=== PATIENT | female | born 1960 | race Caucasian/White ===

== ENCOUNTER 2017-03-20 09:10 | Emergency (ER) | payer BC ==
[~2017-03-20] VITALS: Ht 167.6 cm; Wt 76.0 kg
[2017-03-20 09:11] VITALS: BP 143/95; PULSE 65; RESP 16; TEMP 98.2; O2SAT 96
[2017-03-20 09:57] LABS: AUTOMATED NEUTROPHIL # 4.4 TH/MM3 (1.8-7.7); BASOPHIL % 0.6 % (0.0-2.0); EOSINOPHIL # 0.1 TH/MM3 (0-0.4); EOSINOPHIL % 2.2 % (0.0-4.0); HEMATOCRIT 37.5 % (35.0-46.0); HEMO FLAGS DIFF FINAL; LYMPH % 26.3 % (9.0-44.0); LYMPHOCYTE # 1.8 TH/MM3 (1.0-4.8); MEAN CELL VOLUME 88.5 FL (80.0-100.0); MEAN CORPUSCULAR HEMOGLOBIN 31.7 PG (27.0-34.0); MEAN CORPUSCULAR HGB CONC 35.8 % (32.0-36.0); MONO % 6.2 % (0.0-8.0); NEUT % 64.7 % (16.0-70.0); PLATELET COUNT 199 TH/MM3 (150-450); RED BLOOD COUNT 4.23 MIL/MM3 (4.00-5.30); RED CELL DISTRIBUTION WIDTH 13.2 % (11.6-17.2); WHITE BLOOD COUNT 6.9 TH/MM3 (4.0-11.0)
[2017-03-20 10:03] LABS: PROTHROMBIN TIME - PATIENT 10.7 SEC (9.8-11.6)
--- NOTE | 2017-03-20 10:09 | RADRPT ---
EXAM DATE/TIME: 03/20/2017 09:59 [place] COMPARISON: No previous studies available for comparison. INDICATIONS : Mid sternal chest pains with pressure, radiating between shoulder blades. MEDICAL HISTORY : None. SURGICAL HISTORY : None. ENCOUNTER: Initial ACUITY: 3 days PAIN SCORE: 8/10 LOCATION: Bilateral chest FINDINGS: PA and lateral views of the chest demonstrate the lungs to be symmetrically aerated without evidence of mass, infiltrate or effusion. The cardiomediastinal contours are unremarkable. Osseous structure s are intact. CONCLUSION: Normal examination. Conrad Peres Jr., MD on March 20, 2017 at 10:07 Board Certified Radiologist. This report was verified electronically.
--- NOTE | 2017-03-20 10:13 | PD ---
HPI Chief Complaint: Chest Pain Time Seen by Provider: 09:56 Travel History International Travel<30 days: No Contact w/Intl Traveler<30days: No Traveled to known affect area: No History of Present Illness HPI The patient is a 56-year-old female who presents emergency department for chest discomfort. The patient has a history of intermittent anterior chest discomfort, substernal, described as tightness, they can last from several seconds to 5 minutes. The patient had the discomfort this morning after eating breakfast and the mother driving to work. She denied any shortness of breath, nausea, vomiting, or diaphoresis. The patient does have a history of hyperlipidemia but denies any history of hypertension, tobacco use, diabetes, coronary artery disease, or early family history for heart disease. 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 Raygoza. The patient states the stress test was normal. She denies any exertional symptoms. She denies any known history of GERD, reflux, hiatal hernia, esophagitis, or esophageal spasm. Symptoms are mild to moderate, self alleviating, and there are no exacerbating factors. PFSH Past Medical History Narrative Medical Migraine, hypothyroidism, hyperlipidemia Past Surgical History Narrative Surgical Noncontributory Social History Tobacco Use: No Allergies-Medications (Allergen,Severity, Reaction): Coded Allergies: No Known Allergies (Unverified , 03/20/17) Reported Meds & Prescriptions Reported Meds & Active Scripts Active Reported Imitrex (Sumatriptan Succinate) 50 Mg Tab 50 Mg PO ONCE PRN If a satisfactory response has not been obtained at 2 hours, a second dose may be administered Levothyroxine (Levothyroxine Sodium) 50 Mcg Tab 50 Mcg PO DAILY Lipitor (Atorvastatin Calcium) 20 Mg Tab 20 Mg PO HS Topamax (Topiramate) 50 Mg Tab 50 Mg PO BID Propranolol (Propranolol HCl) 40 Mg Tab 40 Mg PO Q12HR Review of Systems Except as stated in HPI: all other systems reviewed are Neg HENT: No: Lightheadedness Cardiovascular: Positive: Chest Pain or Discomfort, No: Dyspnea on exertion Respiratory: No: Shortness of Breath Gastrointestinal: No: Nausea, Vomiting, Abdominal Pain Musculoskeletal: No: Weakness, Edema Neurologic: No: Dizziness Physical Exam Narrative GENERAL: Awake, alert, pleasant 56-year-old female who appears her stated age and is in no acute respiratory distress. SKIN: Focused skin assessment warm/dry. HEAD: Atraumatic. Normocephalic. EYES: Pupils equal and round. No scleral icterus. No injection or drainage. ENT: No nasal bleeding or discharge. Mucous membranes pink and moist. NECK: Trachea midline. No JVD. CARDIOVASCULAR: Regular, bradycardic with a heart rate in the 50s. No audible murmur. RESPIRATORY: No accessory muscle use. Clear to auscultation. Breath sounds equal bilaterally. GASTROINTESTINAL: Abdomen soft, non-tender, nondistended. No rebound tenderness. No epigastric tenderness. Negative Nye's. MUSCULOSKELETAL: No obvious deformities. No clubbing. No cyanosis. No edema. NEUROLOGICAL: Awake and alert. No obvious cranial nerve deficits. Motor grossly within normal limits. Normal speech. PSYCHIATRIC: Appropriate mood and affect; insight and judgment normal. Data Data Last Documented VS Vital Signs Date Time Temp Pulse Resp B/P (MAP) Pulse Ox O2 Delivery O2 Flow Rate FiO2 03/20/17 12:00 90 20 140/94 (109) 98 Room Air 03/20/17 09:11 98.2 Orders Orders Electrocardiogram (03/20/17 09:21) Complete Blood Count With Diff (03/20/17 09:30) Basic Metabolic Panel (Bmp) (03/20/17 09:30) Ckmb (Isoenzyme) Profile (03/20/17 09:30) Troponin I (03/20/17 09:30) Prothrombin Time / Inr (Pt) (03/20/17 09:32) Chest, Pa & Lat (03/20/17 09:21) Hepatic Functional Panel (03/20/17 09:56) Lipase (03/20/17 09:56) Aspirin Chew (Aspirin Chew) (03/20/17 10:15) Troponin I (03/20/17 12:30) Labs Laboratory Tests Test 03/20/17 09:30 03/20/17 12:30 White Blood Count 6.9 TH/MM3 Red Blood Count 4.23 MIL/MM3 Hemoglobin 13.4 GM/DL Hematocrit 37.5 % Mean Corpuscular Volume 88.5 FL Mean Corpuscular Hemoglobin 31.7 PG Mean Corpuscular Hemoglobin Concent 35.8 % Red Cell Distribution Width 13.2 % Platelet Count 199 TH/MM3 Mean Platelet Volume 8.8 FL Neutrophils (%) (Auto) 64.7 % Lymphocytes (%) (Auto) 26.3 % Monocytes (%) (Auto) 6.2 % Eosinophils (%) (Auto) 2.2 % Basophils (%) (Auto) 0.6 % Neutrophils # (Auto) 4.4 TH/MM3 Lymphocytes # (Auto) 1.8 TH/MM3 Monocytes # (Auto) 0.4 TH/MM3 Eosinophils # (Auto) 0.1 TH/MM3 Basophils # (Auto) 0.0 TH/MM3 CBC Comment DIFF FINAL Differential Comment Prothrombin Time 10.7 SEC Prothromb Time International Ratio 1.0 RATIO Blood Urea Nitrogen 19 MG/DL Creatinine 0.73 MG/DL Random Glucose 113 MG/DL Calcium Level 9.0 MG/DL Sodium Level 142 MEQ/L Potassium Level 3.9 MEQ/L Chloride Level 109 MEQ/L Carbon Dioxide Level 27.9 MEQ/L Anion Gap 5 MEQ/L Estimat Glomerular Filtration Rate 83 ML/MIN Total Bilirubin 0.3 MG/DL Direct Bilirubin 0.1 MG/DL Indirect Bilirubin 0.2 MG/DL Aspartate Amino Transf (AST/SGOT) 20 U/L Alanine Aminotransferase (ALT/SGPT) 44 U/L Alkaline Phosphatase 113 U/L Total Creatine Kinase 88 U/L Troponin I LESS THAN 0.02 NG/ML LESS THAN 0.02 NG/ML Total Protein 7.2 GM/DL Albumin 3.8 GM/DL Lipase 181 U/L MDM Medical Decision Making Medical Screen Exam Complete: Yes Emergency Medical Condition: Yes Medical Record Reviewed: Yes Interpretation(s) EKG reveals sinus bradycardia with a heart rate of 51. No ischemic changes noted. Last Impressions Chest X-Ray 03/20/17920 Signed Impressions: Service Date/Time: Monday, March 20, 2017 09:59 - CONCLUSION: Normal examination. Conrad Peres Jr., MD Laboratory Tests Test 03/20/17 09:30 White Blood Count 6.9 TH/MM3 Red Blood Count 4.23 MIL/MM3 Hemoglobin 13.4 GM/DL Hematocrit 37.5 % Mean Corpuscular Volume 88.5 FL Mean Corpuscular Hemoglobin 31.7 PG Mean Corpuscular Hemoglobin Concent 35.8 % Red Cell Distribution Width 13.2 % Platelet Count 199 TH/MM3 Mean Platelet Volume 8.8 FL Neutrophils (%) (Auto) 64.7 % Lymphocytes (%) (Auto) 26.3 % Monocytes (%) (Auto) 6.2 % Eosinophils (%) (Auto) 2.2 % Basophils (%) (Auto) 0.6 % Neutrophils # (Auto) 4.4 TH/MM3 Lymphocytes # (Auto) 1.8 TH/MM3 Monocytes # (Auto) 0.4 TH/MM3 Eosinophils # (Auto) 0.1 TH/MM3 Basophils # (Auto) 0.0 TH/MM3 CBC Comment DIFF FINAL Differential Comment Prothrombin Time 10.7 SEC Prothromb Time International Ratio 1.0 RATIO Blood Urea Nitrogen 19 MG/DL Creatinine 0.73 MG/DL Random Glucose 113 MG/DL Calcium Level 9.0 MG/DL Sodium Level 142 MEQ/L Potassium Level 3.9 MEQ/L Chloride Level 109 MEQ/L Carbon Dioxide Level 27.9 MEQ/L Anion Gap 5 MEQ/L Estimat Glomerular Filtration Rate 83 ML/MIN Total Bilirubin 0.3 MG/DL Direct Bilirubin 0.1 MG/DL Indirect Bilirubin 0.2 MG/DL Aspartate Amino Transf (AST/SGOT) 20 U/L Alanine Aminotransferase (ALT/SGPT) 44 U/L Alkaline Phosphatase 113 U/L Total Creatine Kinase 88 U/L Troponin I LESS THAN 0.02 NG/ML Total Protein 7.2 GM/DL Albumin 3.8 GM/DL Lipase 181 U/L Second troponin less than 0.02 Differential Diagnosis Differential diagnosis includes acute coronary syndrome, esophageal spasm, GERD , esophagitis, reflux, hiatal hernia, pulmonary embolism, cardiomyopathy, anxiety. Narrative Course IV was established, labs are drawn and sent, and the patient was placed on cardiac telemetry monitoring and continuous pulse oximetry monitoring. The patient was administered aspirin 162 mg orally. The patient was chest pain-free , therefore, no nitroglycerin was administered. The patient does have a history of similar symptoms in the past, had a stress test one year ago and an echocardiogram performed by her shingle cutter which was unremarkable. The patient has one risk factor, hyperlipidemia, but denies any history of hypertension, diabetes, tobacco use, review of CAD, or early family history. Symptoms are atypical, nonexertional, can happen after eating or while driving. I do discussion with the patient regarding serial cardiac enzymes and admission to the chest pain Center versus serial cardiac enzymes and discharged home. The patient would prefer to sets of enzymes and if negative to be discharged home. The patient's initial troponin was less than 0.02. Therefore , 3 hour troponin level was ordered for 12:30 PM. Second troponin is less than 0.02. The patient be discharged home. She is advised to follow-up with her primary physician and her shingle cutter. She will be provided a copy of her lab results and x-ray results at discharge. Diagnosis Primary Impression: Atypical chest pain Patient Instructions: General Instructions Additional Instructions: Please provide a patient a copy of her lab results and x-ray results at discharge. Follow-up with your shingle cutter. Take a baby aspirin daily. Return if symptoms worsen or progress. Med/Other Pt SpecificInfo: No Change to Meds Disposition: 01 DISCHARGE HOME Condition: Stable Jeff Cordova MD Mar 20, 2017 10:13
[2017-03-20 10:15] LABS: ANION GAP 5 MEQ/L (5-15); BICARBONATE 27.9 MEQ/L (21.0-32.0); BLOOD UREA NITROGEN 19 MG/DL (7-18); CHLORIDE 109 MEQ/L (98-107); GLOMERULAR FILTRATION RATE 83 ML/MIN (>89); POTASSIUM 3.9 MEQ/L (3.5-5.1); SODIUM (NA) 142 MEQ/L (136-145)
[2017-03-20] MEDS ORDERED: ASPIRIN 81 MG CHEW TAB CHEW ONE (10:15)
[2017-03-20] MEDS ORDERED: LEVO50TA4 PO (10:20)
[2017-03-20] MEDS ORDERED: LIPI20TA PO (10:20)
[2017-03-20] MEDS ORDERED: IMIT50TA PO (10:20)
[2017-03-20] MEDS ORDERED: PROP40TA3 PO (10:20)
[2017-03-20] MEDS ORDERED: TOPA50TA7 PO (10:20)
[2017-03-20 10:23] LABS: CREATINE KINASE 88 U/L (26-192)
[2017-03-20 10:26] LABS: INDIRECT BILIRUBIN 0.2 MG/DL (0.0-0.8); TOTAL BILIRUBIN ADULT 0.3 MG/DL (0.2-1.0)
[2017-03-20 12:00] VITALS: BP 140/94; PULSE 90; RESP 20; O2SAT 98
[2017-03-20 13:27] VITALS: BP 150/73
--- NOTE | 2017-03-20 13:59 | EKG ---
Date Performed: 03/20/2017 Time Performed: 09:24:45 PTAGE: 56 years EKG: SINUS BRADYCARDIA BORDERLINE ECG NO PREVIOUS TRACING DOCTOR: Domingo Hernandez Interpretating Date/Time 03/20/2017 13:57:32
== END 2017-03-20 13:31 | disposition home or self-care (01) ==
LOC: NEPD 09:10
DX: R07.89 Other chest pain (principal); R00.1 Bradycardia, unspecified; E03.9 Hypothyroidism, unspecified; E78.5 Hyperlipidemia, unspecified; Z79.899 Other long term (current) drug therapy
CPT/HCPCS: 71020; 80048; 80076; 82550; 83690; 84484; 85025; 85610; 93005; 99285